=== PATIENT | female | born 1995 | race African-American/Black ===

== ENCOUNTER 2016-09-21 18:22 | Emergency (ER) | payer OTHER ==
[~2016-09-21] VITALS: Ht 157.5 cm; Wt 61.7 kg
[~2016-09-21 18:22] MED LIST: BACTRIM 400 MG-1 TAB PO; TRAMADOL50 MG PO
[2016-09-21 18:33] VITALS: BP 103/68
[2016-09-21 19:13] LABS: ABSOLUTE BASOPHIL COUNT 0 /CUMM (0.0-0.2); ABSOLUTE MONOCYTE COUNT 0.3 /CUMM (0.10-0.60); MEAN CORPUSCULAR HGB 28.7 PG (27.0-31.0)
[2016-09-21 19:18] LABS: ABSOLUTE EOSINOPHIL COUNT 0 /CUMM (0.0-0.7); ABSOLUTE GRANULOCYTE CT 1.8 /CUMM (1.4-6.5); ABSOLUTE LYMPH COUNT 1.9 /CUMM (1.2-3.4); BASOPHIL % 0.5 % (0.0-2.0); GRANULOCYTE % 44.6 % (42.2-75.2); HEMATOCRIT 42.5 % (37-47); MEAN CORPUSCULAR HGB CONC 33.7 G/DL (33.0-37.0); MEAN PLATELET VOLUME 11.1 FL (7.4-10.4); PLATELET COUNT 188 /CUMM (130-400); RBC DISTRIBUTION WIDTH 13.5 % (11.5-14.5)
--- NOTE | 2016-09-21 20:31 | ED GI/GU/ABDOMINAL COMPLAINT ---
History of Present Illness General Chief Complaint: Female Urogenital Problems Stated Complaint: VAG BLEEDING, BACK AND ABD PAIN, X 1 WEEK Source: patient Exam Limitations: no limitations Vital Signs & Intake/Output Vital Signs & Intake/Output Vital Signs Date Time Temp Pulse Resp B/P B/P Pulse O2 O2 Flow FiO2 Mean Ox Delivery Rate 09/21 1833 97.5 75 16 103/68 97 Room Air Allergies Coded Allergies: NO KNOWN ALLERGIES (04/26/14) Reconcile Medications SULFAMETHOXAZOLE/TRIMETHOPRIM (Bactrim 400-80 MG Tablet) 1 EACH TABLET 1 TAB PO BID UTI TRAMADOL HCL (Tramadol) 50 MG TABLET 1 TAB PO Q6HR PRN PAIN Triage Note: PT STATES SHE THINKS SHE WAS AND NOW SHE IS BLEEDING AND THE PAIN IS GETTING WORSE IN HER ABD. PT THINKS SHE WAS 3 WEEKS . PT REPORTS GOING THROUGH [facility] THE PAST COUPLE OF DAYS. Triage Nurses Notes Reviewed? yes ? N Is pt currently ? No Onset: Gradual Duration: constant Timing: recent history Quality/Severity: cramping Severity Numbers: 3 Radiation: back Activities at Onset: none HPI: Patient is a 21-year-old female who presents emergency room with concerns of abnormal vaginal bleeding. Patient is a female who states that last week patient noted a gradual onset of intermittent vaginal spotting however over the weekend bleeding became more persistent with discharge of clot or today patient had persistent vaginal bleeding where she is used 7 pads today. Patient complains of suprapubic generalized abdominal cramping and back pain patient is unsure of status. Patient is sexually active. Patient is able tolerate by mouth Denies any fever chills lightheaded sensation nausea vomiting dysuria hematuria or frequency changes of urination Patient does admit to irregular menstrual period Patient's last menstrual period was 2 months ago Denies any vaginal skin irritation or painful intercourse symptoms Past History Travel History Traveled to [place] past 21 day No Medical History Any Pertinent Medical History? none Surgical History Surgical History: non-contributory Psychosocial History What is your primary language Luxembourger Tobacco Use: Never used ETOH Use: denies use Illicit Drug Use: denies illicit drug use Family History Hx Contributory? No Review of Systems Review of Systems Constitutional: Reports: no symptoms. EENTM: Reports: no symptoms. Respiratory: Reports: no symptoms. Cardiovascular: Reports: no symptoms. GI: Reports: see HPI. Denies: abdominal pain. Genitourinary: Reports: see HPI. Musculoskeletal: Reports: no symptoms. Skin: Reports: no symptoms. Neurological/Psychological: Reports: no symptoms. Hematologic/Endocrine: Reports: see HPI. Immunologic/Allergic: Reports: no symptoms. All Other Systems: Reviewed and Negative Physical Exam Physical Exam General Appearance: no apparent distress, alert, comfortable Gastrointestinal: normal bowel sounds, soft, non-tender, no organomegaly Comments: Well-developed well-nourished person in no acute distress HEENT: Normal EENT exam, Neck: Supple, no lymphadenopathy, normal range of motion without pain or tenderness Back: Nontender, no CVA tenderness. Cardiovascular: Regular rate and rhythms no murmurs rubs or gallops, normal JVP Respiratory: Chest nontender. No respiratory distress.breath sounds clear to auscultation bilaterally Abdomen: Soft, nontender nondistended, no appreciable organomegaly. Normal bowel sounds. No ascites Extremity: No edema, no calf tenderness to palpation, normal and equal pulses. Neuro: Alert oriented x3, motor sensory normal, Skin: No appreciable rash on exposed skin, skin is warm and dry. Psych: Mood and affect is normal, memory and judgment is normal. Core Measures ACS in differential dx? No Severe Sepsis Present: No Septic Shock Present: No Progress Differential Diagnosis: AAA, AMI, appendicitis, biliary colic, bowel obstruction , colon cancer, cholecystitis, diverticulitis, ectopic , endometritis, esophageal varices, gastritis, hepatitis, hernia, hemorrhoids, ischemic bowel, inflamm bowel dis, intrauterine , kidney stone, Venita-Claudia tear, ovarian cyst, ovarian torsion, pancreatitis, PID/cervicitis, peptic ulcer, PUD/ GERD, perforated viscous, SBO, threatened AB, UTI/pyelo Plan of Care: Orders Procedure Date/time Status HUMAN BETA HCG TITRE 09/21 183 Complete COMPREHENSIVE METABOLIC PANEL 09/21 183 Complete CBC WITHOUT DIFFERENTIAL 09/21 183 Complete TYPE & SCREEN (NOT X-MATCH) 09/21 183 Complete URINE 09/21 183 Active URINALYSIS 09/21 183 Active Laboratory Tests 09/21/16 1838: Anion Gap 11, Estimated GFR > 60, BUN/Creatinine Ratio 16.3, Glucose 87, Calcium 9.8, Total Bilirubin 0.4, AST 24, ALT 42, Alkaline Phosphatase 56, Total Protein 7.6, Albumin 4.4, Globulin 3.2, Albumin/Globulin Ratio 1.4, Beta HCG, Quant < 2.4, CBC w Diff NO MAN DIFF REQ, RBC 5.00, MCV 85.0, MCH 28.7, RDW 13.5, MPV 11.1 H, Gran % 44.6, Lymphocytes % 46.6, Monocytes % 7.3, Eosinophils % 1.0, Basophils % 0.5, Absolute Granulocytes 1.8, Absolute Lymphocytes 1.9, Absolute Monocytes 0.3, Absolute Eosinophils 0, Absolute Basophils 0, PUBS MCHC 33.7 Patient tenderness of examination was in no apparent distress patient has nontender abdomen. Beta was unremarkable and was surge no concern of . Patient's hemoglobin and hematocrit was unremarkable. Patient was normotensive. Blood work was unremarkable. Due to history of present illness and exam findings or suspicion of dysmenorrhea patient was given a transvaginal ultrasound prescription for follow-up tomorrow as her [facility] is Dr. Rolon 's office. (MAYELA RICHMOND,[place]) Initial ED EKG: none Departure Departure Disposition: HOME OR SELF CARE Condition: Stable Clinical Impression Primary Impression: Dysmenorrhea Referrals: AILYN WILKINS MD (PCP/Family) Additional Instructions: As discussed please call the central scheduling phone number is [phone] for the Department of radiology to call for an appointment to have a transvaginal ultrasound performed. If symptoms worsen return to emergency room. Follow-up tomorrow with established [employer] [employer]. Continue with [id number] ibuprofen for pain Departure Forms: Customer Survey General Discharge Information
== END 2016-09-21 21:02 ==
LOC: ERH 18:22
PROVIDERS: Emergency Medicine
DX: N94.6 Dysmenorrhea, unspecified (principal)
CPT/HCPCS: 81025